=== PATIENT | male | born 1940 | race Caucasian/White ===

== ENCOUNTER 2021-08-24 10:16 | Emergency (ER) | payer OTHER ==
[2021-08-24 10:36] LABS: BILIRUBIN NEGATIVE (NEGATIVE); BLOOD 3+ Ery/uL (NEGATIVE); CLARITY CLEAR (CLEAR); COLOR YELLOW (YELLOW); GLUCOSE (U) NORMAL (NORMAL); LEUKOCYTES NEGATIVE Leu/uL (NEGATIVE); NITRITE NEGATIVE (NEGATIVE); PROTEIN NEGATIVE (NEGATIVE); SPECIFIC GRAVITY 1.015 (1.001-1.030); UROBILINOGEN 0.2 mg/dL (0.2-1.0)
[2021-08-24 10:45] LABS: BACTERIA 1+
[2021-08-24 10:55] LABS: BASOPHIL 0.2 % (0-2); EOSINOPHIL 0.1 % (0-7); HCT 44.8 % (42.0-52.0); HGB 14.7 g/dl (13.2-18.0); MCH 29.9 pg (25.0-31.0); MCHC 32.8 g/dL (32.0-36.0); MCV 91.1 fL (78.0-100.0); MONOCYTE 2.3 % (0-12); NEUTROPHIL 45.5 % (41-80); NRBC 0.3; PLT 151 K/uL (150-400); RBC 4.92 M/uL (4.70-6.00); RDW 13.9 % (11.5-14.0); WBC 18.3 K/uL (4.0-10.5)
[2021-08-24 10:56] LABS: LYMPHOCYTE 51.6 % (15-48)
[2021-08-24 11:12] LABS: ALBUMIN 3.7 g/dL (3.4-5.0); BILIRUBIN - TOTAL 0.3 mg/dL (0.2-1.0); BUN/CREAT RATIO (CALC) 12.1 RATIO; CREATININE 0.99 mg/dL (0.67-1.17); GLOBULIN (CALCULATION) 3.1 g/dL; TOTAL PROTEIN 6.8 g/dL (6.4-8.2)
[2021-08-24] MEDS ORDERED: FLOMAX0.4 MG PO (13:07)
[2021-08-24] MEDS ORDERED: LEVAQUIN750 MG PO (13:07)
== END 2021-08-24 13:20 | disposition home or self-care (01) ==
LOC: FER 10:16
PROVIDERS: Internal Medicine
DX: N40.1 Benign prostatic hyperplasia with lower urinary tract symptoms (principal); R33.8 Other retention of urine; R31.9 Hematuria, unspecified; N41.9 Inflammatory disease of prostate, unspecified; I10 Essential (primary) hypertension; Z88.5 Allergy status to narcotic agent
CPT/HCPCS: 36415; 80053; 81001; 85025

== ENCOUNTER 2022-03-22 07:25 | Emergency (ER) | payer OTHER ==
[~2022-03-22 07:25] MED LIST: FLOMAX0.4 MG PO; LEVAQUIN750 MG PO
[2022-03-22 08:20] LABS: BILIRUBIN NEGATIVE (NEGATIVE); BLOOD 3+ Ery/uL (NEGATIVE); COLOR YELLOW (YELLOW); GLUCOSE (U) NORMAL (NORMAL); LEUKOCYTES NEGATIVE Leu/uL (NEGATIVE); NITRITE NEGATIVE (NEGATIVE); PROTEIN NEGATIVE (NEGATIVE); SPECIFIC GRAVITY 1.015 (1.001-1.030); UROBILINOGEN 0.2 mg/dL (0.2-1.0); pH 6.5 (5.0-9.0)
[2022-03-22 08:22] LABS: CLARITY HAZY (CLEAR)
[2022-03-22 08:27] LABS: URINARY RBC TNTC
[2022-03-22] MEDS ORDERED: FLOMAX0.4 MG PO (08:32)
== END 2022-03-22 09:21 | disposition home or self-care (01) ==
LOC: FER 07:25
PROVIDERS: Emergency Medicine
DX: R33.9 Retention of urine, unspecified (principal); E78.5 Hyperlipidemia, unspecified; Z79.899 Other long term (current) drug therapy
CPT/HCPCS: 81001